=== PATIENT | male | born 1995 | race Hispanic/Latino ===

== ENCOUNTER 2022-12-09 17:36 | Emergency (ER) | payer SELFPAY ==
[~2022-12-09] VITALS: Ht 165.1 cm; Wt 75.0 kg
[2022-12-09 17:46] VITALS: BP 178/100
[2022-12-09 17:48] VITALS: BP 164/101
[2022-12-09 17:50] VITALS: BP 153/109
[2022-12-09 18:00] VITALS: BP 142/93
[2022-12-09 18:30] VITALS: BP 129/91
[2022-12-09 18:53] VITALS: BP 129/91
[2022-12-09] MEDS ORDERED: KEFLEX500 MG PO (18:55)
== END 2022-12-09 19:01 | disposition home or self-care (01) | DRG 605 ==
LOC: ED 17:36
DX: S80.11XA Contusion of right lower leg, initial encounter (principal); W20.8XXA Other cause of strike by thrown, projected or falling object, initial encounter